=== PATIENT | female | born 1955 | race Caucasian/White ===

== ENCOUNTER 2016-12-03 16:03 | Emergency (ER) | payer MEDICARE, SELFPAY ==
[~2016-12-03] VITALS: Ht 157.5 cm; Wt 59.9 kg
[~2016-12-03 16:03] MED LIST: BENTYL10 MG PO; CARDIZEM30 MG PO; CIPRO500 MG PO; CO Q-1010 MG PO; COQ-1030 MG PO; FLAGYL500 MG PO; NITROSTAT0.4 MG SL; NORVASC2.5 MG PO; PROAIR RESPICL90 MCG INH; PROBIOTIC1 EAC1 PO; ZEBUTAL 50-3251 EACH PO; ZOFRAN ODT4 MG PO; ZYRTEC10 MG PO
== END 2016-12-03 19:25 | disposition short-term general hospital (02) ==
LOC: ER 16:03
DX: R10.9 Unspecified abdominal pain (principal); K21.9 Gastro-esophageal reflux disease without esophagitis; D64.9 Anemia, unspecified; K59.00 Constipation, unspecified; I10 Essential (primary) hypertension; E78.00 Pure hypercholesterolemia, unspecified; Z88.1 Allergy status to other antibiotic agents; Z88.0 Allergy status to penicillin; Z88.2 Allergy status to sulfonamides; Z88.5 Allergy status to narcotic agent; Z90.49 Acquired absence of other specified parts of digestive tract; Z90.710 Acquired absence of both cervix and uterus; Z98.890 Other specified postprocedural states
CPT/HCPCS: J1885

== ENCOUNTER → 2017-03-07 | Outpatient (CLI) | payer MEDICARE | END | disposition short-term general hospital (02) | LOC: CLPHYS 08:56 | DX: G56.13 Other lesions of median nerve, bilateral upper limbs (principal); G56.21 Lesion of ulnar nerve, right upper limb ==